=== PATIENT | male | born 1955 | race Caucasian/White ===

== ENCOUNTER → 2017-08-20 | Outpatient (CLI) | payer OTHER ==
[~2017-08-20] MED LIST: AMOXICILLIN PO; IBUPROFEN OTC PRN; MULTIPLE VITAMI1 T13 PO; PROBIOTIC1 EAC3 PO; [UNRECOGNIZED DRUG - REMARK]
--- NOTE | ~2017-08-20 | CT4 ---
[facility] A Service of [facility] & [facility] RADIOLOGY TEXT RESULTS PATIENT: DONG TAPIA LOCATION: [facility] : 57 UNIT #: [id number] AGE: [address]: Raquel Arriola APRN SEX: M ORDER DR: [id number] [address] [address] [id number] O MR#: [id number] Acc #: [id number] NAME: DONG TAPIA : 1955 SEX: M STUDY DATE/TIME: 08/20/2017 9:39 UNIT: [facility] ROOM: STUDY DESCRIPTION: CT Abd and Pelv Wo Cont Attending Physician: Raquel Arriola A.P.R.N. Referring Physician: Raquel Arriola A.P.R.N. Ordering Physician: Raquel Arriola A.P.R.N. Primary Care Physician: Christina Dhillon M.D. MEDICAL IMAGING REPORT This report is preliminary unless electronic signature is present. EXAM CT abdomen and pelvis without contrast INDICATIONS Hematuria and right flank pain for the past [address] of the abdomen and pelvis. This CT exam was performed with one or more of the following radiation dose reduction techniques: automatic exposure control, adjustment of mA and/or kV according to patient size, and iterative reconstruction. FINDINGS ABDOMEN WITHOUT CONTRAST: Lung bases are clear. The liver, spleen, pancreas, gallbladder have an unremarkable unenhanced appearance. Bilateral benign adrenal adenomas, largest on the right measures 2 cm, largest on the left measures 2.6 cm. Area of increased attenuation in the left kidney measures 1.5 cm, probably a proteinaceous or hemorrhagic cyst but indeterminate on this study. No radiodense urinary system calculus or hydronephrosis. Bowel loops are non-dilated. Appendix is normal. PELVIS WITHOUT CONTRAST: No radiodense bladder calculus. No pelvic mass or fluid. No aggressive appearing bone lesion. Degenerative change in the lumbar spine, including approximately 6 mm anterolisthesis of L4 on L5. IMPRESSION 1. No acute findings. No radiodense urinary system calculus or hydronephrosis. 2. Indeterminate 1.5 cm high-attenuation lesion in the left kidney is [facility] A Service of [facility] & [facility] RADIOLOGY TEXT RESULTS PATIENT: DONG TAPIA LOCATION: [facility] #: [id number] : 57 UNIT #: [id number] AGE: [address]: Raquel Arriola APRN SEX: M ORDER DR: probably benign proteinaceous or hemorrhagic cyst. Consider renal ultrasound for initial evaluation. Ultimately, additional imaging may be required. 3. Bilateral benign adrenal adenomas. 4. Degenerative change in the lower lumbar spine. Dictated by... Indra Nguyen M.D. THIS IS AN ELECTRONICALLY VERIFIED REPORT Indra Nguyen M.D. at 08/21/2017 8:05 AM CARLTON/lloyd TD: 08/20/2017 15:20 JOB #: [id number] MEDICAL IMAGING REPORT Page 1 of 1
== END | disposition home or self-care (01) ==
LOC: SCT 09:27
DX: R31.9 Hematuria, unspecified (principal); R10.9 Unspecified abdominal pain; N28.9 Disorder of kidney and ureter, unspecified; D35.02 Benign neoplasm of left adrenal gland; D35.01 Benign neoplasm of right adrenal gland; M47.896 Other spondylosis, lumbar region
CPT/HCPCS: 74176

== ENCOUNTER → 2017-08-23 | Outpatient (CLI) | payer OTHER ==
--- NOTE | ~2017-08-23 | US77 ---
[facility]. [facility] A Service [facility] RADIOLOGY TEXT RESULTS PATIENT: DONG TAPIA LOCATION: [facility] : 57 UNIT #: [id number] AGE: [address]: Raquel Arriola APRN SEX: M ORDER DR: [id number] [address] [address] [id number] O MR#: [id number] Acc #: [id number] NAME: DONG TAPIA : 1955 SEX: M STUDY DATE/TIME: 08/23/2017 11:08 UNIT: [facility] ROOM: STUDY DESCRIPTION: US Kidney Bilateral Complete Attending Physician: Raquel Arriola A.P.R.N. Referring Physician: Raquel Arriola A.P.R.N. Ordering Physician: Raquel Arriola A.P.R.N. Primary Care Physician: Christina Dhillon M.D. MEDICAL IMAGING REPORT This report is preliminary unless electronic signature is present. EXAM Renal ultrasound INDICATIONS Indeterminant left renal lesion on recent CT. Observation for renal cyst versus mass. PROCEDURE Prabhakar-scale and Doppler imaging of the kidneys and bladder. COMPARISON CT from 08/20/2017. FINDINGS Right kidney measures 12.6 cm. There is an 11-mm cyst in the upper pole of the right kidney. There is a 1.9-cm cyst in the right mid kidney. Bladder unremarkable. Left kidney measures 13.5 cm. There are several small cysts in the left kidney, largest cyst is in the lower pole of the left kidney and measures 1.8 cm. IMPRESSION Bilateral renal cysts. There is no evidence for a solid renal mass. The finding on the recent CT is favored to represent a benign proteinaceous or hemorrhagic cyst. Dictated by... Indra Nguyen M.D. THIS IS AN ELECTRONICALLY VERIFIED REPORT Indra Nguyen M.D. at 08/25/2017 7:13 AM EED/psc [facility] A Service of [facility] RADIOLOGY TEXT RESULTS PATIENT: DONG TAPIA LOCATION: [facility] #: [id number] : 57 UNIT #: [id number] AGE: [address]: Raquel Arriola APRN SEX: M ORDER DR: TD: 08/24/2017 11:06 JOB #: [id number] MEDICAL IMAGING REPORT Page 1 of 1
== END | disposition home or self-care (01) ==
LOC: SGUS 10:23
DX: N28.1 Cyst of kidney, acquired (principal); Q61.02 Congenital multiple renal cysts
CPT/HCPCS: 76775